=== PATIENT | male | born 1955 | race Caucasian/White ===

== ENCOUNTER 2020-11-13 07:47 | Day surgery (SDC) | payer OTHER ==
[~2020-11-13 07:47] MED LIST: Ak-Dilate OPHTHALMIC*** 1.065 ML, Cyclogyl 1% OPHTH SOL 5 ML 1.065 ML, GATIFLOXACIN 0.5... OP ONE; BETADINE 5% OPHTHALMIC 30 ML OP ONE; Lactated Ringers 1,000 ML IV SCH; NON-FORMULARY ITEM IJ ONE; TETRACAINE 0.5% STERI-UNIT SOL OP ONE; cefUROXime sodium 0.005 GM in Sodium Chloride Flush 30 ML*** 0.5 ML IJ SCH
[2020-11-13] MEDS ORDERED: Lactated Ringers 1,000 ML IV ONE (07:51)
[2020-11-13] MEDS ORDERED: ACETAZOLAMIDE 250 MG TABLET PO ONE (09:00)
[2020-11-13] MEDS ORDERED: Zofran 4 MG/2 ML VIAL IV PRN (09:00)
[2020-11-13] MEDS ORDERED: Epinephrine Preservative Free 1 MG/ML INTRAOP ONE (10:00)
[2020-11-13] MEDS ORDERED: LIDOCAINE HCL 1% 50 MG/5 ML VL PF IJ ONE (10:00)
[2020-11-13] MEDS ORDERED: DIPRIVAN 200 MG/20 ML IV ONE ×3 (10:40→10:53)
[2020-11-13 11:47] VITALS: O2SAT 98
[2020-11-13 11:50] VITALS: BP 140/87; PULSE 69
== END 2020-11-13 11:57 | disposition home or self-care (01) ==
LOC: SDC 07:47
PROVIDERS: ATTEND Ophthalmology
DX: H25.812 Combined forms of age-related cataract, left eye (principal); E11.9 Type 2 diabetes mellitus without complications; I10 Essential (primary) hypertension; Z79.899 Other long term (current) drug therapy
CPT/HCPCS: 66982; 82947; C1780; J0171; J2001; J2704; A9270-GY

== ENCOUNTER 2021-11-13 06:35 | Day surgery (SDC) | payer MEDICARE ==
[2021-11-13] MEDS ORDERED: Lactated Ringers 1,000 ML IV SCH (07:00)
[2021-11-13] MEDS ORDERED: DIPRIVAN 200 MG/20 ML IV ONE ×2 (08:03→08:11)
--- NOTE | 2021-11-13 09:04 | OP ---
SURGERY DATE/TIME: 11/13/2021 0803 PREOPERATIVE DIAGNOSIS: Positive Cologuard. POSTOPERATIVE DIAGNOSIS: Normal colon. PROCEDURE: Diagnostic colonoscopy. SURGEON: Jevon Buchanan M.D. ANESTHESIA: MAC by Sander Cyr CRNA. ESTIMATED BLOOD LOSS: None. SPECIMENS: None. DESCRIPTION OF PROCEDURE: After informed written consent was obtained, the patient was taken to the endoscopy suite. He was placed in left lateral decubitus position. Digital rectal exam showed normal sphincter tone and some mild internal hemorrhoids but no other lesions. The scope inserted into the rectum and sequentially the entire colonic mucosa was traversed. The level of cecum was reached and verified with direct visualization of the ileocecal valve. Upon withdrawal careful mucosal inspection revealed no gross abnormalities. Prior to withdrawal retroflexion was performed and showed no obvious internal lesions. The scope was removed. The patient was transferred to the recovery room in good condition.
[2021-11-13 09:07] VITALS: BP 148/89; PULSE 74; O2SAT 99
== END 2021-11-13 09:20 | disposition home or self-care (01) ==
LOC: SDC 06:35
PROVIDERS: ATTEND Family Medicine
DX: R19.5 Other fecal abnormalities (principal); K64.8 Other hemorrhoids; I10 Essential (primary) hypertension; E11.9 Type 2 diabetes mellitus without complications
CPT/HCPCS: 82947; J2704